=== PATIENT | male | born 1985 | race Caucasian/White ===

== ENCOUNTER 2016-06-18 19:05 | Emergency (ER) | payer OTHER ==
[~2016-06-18] VITALS: Ht 182.9 cm; Wt 72.7 kg
[2016-06-18] MEDS ORDERED: ONDANSETRON HCL 4 MG/2 ML VIAL IVP ONE (21:15)
[2016-06-18] MEDS ORDERED: MORPHINE SULFATE 4 MG/ML SYRINGE IVP ONE (21:15)
[2016-06-18] MEDS ORDERED: AMOX TR/POT CLAV 875 MG/125 MG TABLET PO ONE (22:30)
[2016-06-18 22:59] VITALS: BP 151/57
== END 2016-06-18 23:02 | disposition home or self-care (01) ==
LOC: EMS 19:11
DX: S00.83XA Contusion of other part of head, initial encounter (principal); J32.9 Chronic sinusitis, unspecified; Y08.89XA Assault by other specified means, initial encounter; Y93.89 Activity, other specified; Y92.89 Other specified places as the place of occurrence of the external cause; Y99.8 Other external cause status; F17.210 Nicotine dependence, cigarettes, uncomplicated; F12.90 Cannabis use, unspecified, uncomplicated
CPT/HCPCS: 70450; 70486; 96374; 96375; 99284; 99406; J2270; J2405